=== PATIENT | female | born 1930 | race Caucasian/White ===

== ENCOUNTER 2017-02-12 13:07 | Observation (INO) | payer MEDICARE, OTHER ==
[2017-02-12] MEDS ORDERED: NITROGLYCERIN OINT 1 INCH/GM PACKET TOPICAL STA (14:26)
[2017-02-12] MEDS ORDERED: SODIUM CHLORIDE 0.9% 1,000 ML IV STA (14:26)
[2017-02-12] MEDS ORDERED: ONDANSETRON 4 MG/2 ML VIAL IVP STA (14:26)
--- NOTE | 2017-02-12 14:38 | ED ---
Chest Pain HPI - General Chief Complaint: Chest Pain Stated Complaint: Burning sensation in chest Time Seen by Provider: 02/12/17 13:58 Source: patient Mode of arrival: wheelchair Limitations: no limitations - History of Present Illness Initial Comments: Planing about chest pain, she had a couple episodes of chest pain each lasted for 5 minutes on the left side of the chest and today she had some burning on the right side of the chest and it has resolved prior to her arrival to the ER [facility] shortness of breath and deep breaths do not make the chest pain worse she has no symptoms at all she never smoked in her life and she denies any alcohol family history significant for cancer the mother decided the dad had a TB the both parents when she was very young does not know exactly too much about their health history denies any fever no chills no nausea no vomiting no signs of any TIA or CVA is also complaining about the lump on the right thigh - Related Data Home Medications Medication Instructions Recorded Confirmed Cholecalciferol [Vitamin D3] 1,000 unit PO DAILY 02/12/17 02/12/17 Levothyroxine Sodium [Synthroid] 75 mcg PO DAILY 02/12/17 02/12/17 Multivitamins, Thera [Multivitamin 1 tab PO DAILY 02/12/17 02/12/17 (formulary)] Olmesartan/Hydrochlorothiazide 1 tab PO DAILY 02/12/17 02/12/17 [Olmesartan-Hctz 40-12.5 mg Tab] Allergies Allergy/AdvReac Type Severity Reaction Status Date / Time No Known Allergies Allergy Verified 02/12/17 14:12 Review of Systems ROS Statement: Those systems with pertinent positive or pertinent negative responses have been documented in the HPI. ROS Other: All systems not noted in ROS Statement are negative. EKG Findings - EKG Comments: EKG Findings:: Him EKG shows normal sinus rhythm ventricular rate is 84 VA interval is 206 QRS duration is 138 QT/QTc is 424/501 left ventricle hypertrophy with QRS widening and repolarization abnormality, this EKG was compared with EKG done back in 10/09/2012 was to the EKG looks quite unchanged when compared to the old EKG from 10/09/2012 Past Medical History Past Medical History: Hypertension, Thyroid Disorder History of Any Multi-Drug Resistant Organisms: None Reported Past Surgical History: No Surgical Hx Reported Past Psychological History: No Psychological Hx Reported Smoking Status: Never smoker Past Alcohol Use History: None Reported Past Drug Use History: None Reported General Exam - General Exam Comments Initial Comments: General: The patient is awake and alert, in no distress, and does not appear acutely ill. Skin: Skin is warm and dry and no rashes or lesions are noted. Eye: Pupils are equal, round and reactive to light, extra-ocular movements are intact; there is normal conjunctiva bilaterally. Ears, nose, mouth and throat: There are moist mucous membranes and no oral lesions. Neck: The neck is supple, there is no tenderness or JVD. Cardiovascular: There is a regular rate and rhythm. No murmur, rub or gallop is appreciated. Respiratory: To auscultation bilateral, no wheezing no rhonchi no distress respiratory mayorga noticed Gastrointestinal: Soft, non-distended, non-tender abdomen without masses or organomegaly noted. There is no rebound or guarding present. Bowel sounds are unremarkable. Back: There is no tenderness to palpation in the midline. There is no obvious deformity. Musculoskeletal: Normal ROM, no tenderness, There is no pedal edema. There is no calf tenderness or swelling. No cords were appreciated. Notice a small lump on the right medial lateral thigh Neurological: CN II-XII intact, Cranial nerves III through XII are intact. There are no obvious motor or sensory deficits. Coordination appears grossly intact. Speech is normal. Psychiatric: Cooperative, appropriate mood & affect, normal judgment. Limitations: no limitations Course Vital Signs 02/12/17 02/12/17 13:29 15:12 Temperature 98 F Pulse Rate 87 71 Respiratory 20 20 Rate Blood Pressure 167/78 151/74 O2 Sat by Pulse 98 95 Oximetry Gen. the reassessed at 1625 her troponin, EKG are DVT studies chest x-ray CBC and compressive metabolic panel are unremarkable Disposition Clinical Impression: Chest pain, Right leg swelling Disposition: ADMITTED IP TO THIS HOSP Condition: Good
[2017-02-12 15:00] LABS: Basophils % (A) 0 %; CH 31.9; Eosinophils # (A) 0.1 k/uL (0-0.7); Eosinophils % (A) 2 %; HCT 44.9 % (34.0-46.0); HDW 2.38; Luc # (Auto) 0.14; Luc % (Auto) 3; Lymphocytes # (A) 1.2 k/uL (1.0-4.8); Lymphocytes % (A) 22 %; MCH 31.4 pg (25.0-35.0); MCHC 33.3 g/dL (31.0-37.0); MCV 94.2 fL (80.0-100.0); Mean Platelet Volume 6.8; Monocytes # (A) 0.4 k/uL (0-1.0); Monocytes % (A) 7 %; Neutrophils # (A) 3.6 k/uL (1.3-7.7); Neutrophils % (A) 67 %; RBC 4.77 m/uL (3.80-5.40); RDW 12.4 % (11.5-15.5); WBC 5.4 k/uL (3.8-10.6); WBC (Perox) 5.36
[2017-02-12 15:12] LABS: INR 1.1 (<1.1); Partial Thromboplastin Time 26.2 sec (22.0-30.0); Prothrombin Time 10.9 sec (9.0-12.0)
[2017-02-12 15:21] LABS: ALT 20 U/L (9-52); AST 30 U/L (14-36); Alkaline Phosphatase 64 U/L (38-126); Anion Gap 13 mmol/L; Blood Urea Nitrogen 20 mg/dL (7-17); Carbon Dioxide 24 mmol/L (22-30); Chloride 104 mmol/L (98-107); Glucose 91 mg/dL (74-99); Magnesium 1.8 mg/dL (1.6-2.3); Non-African American GFR(MDRD) >60 (>60 ml/min/1.73 sqM); Sodium 141 mmol/L (137-145); Total Bilirubin 0.9 mg/dL (0.2-1.3); Total Protein 7.4 g/dL (6.3-8.2)
[2017-02-12 15:28] LABS: Potassium 4.3 mmol/L (3.5-5.1)
--- NOTE | 2017-02-12 15:38 | US ---
EXAMINATION TYPE: US venous doppler duplex LE RT DATE OF EXAM: 02/12/2017 3:32 PM COMPARISON: No previous CLINICAL HISTORY: Pain. Chest pain SIDE PERFORMED: Right VESSELS IMAGED: External Iliac Vein (EIV) Common Femoral Vein Deep Femoral Vein Greater Saphenous Vein * Femoral Vein Popliteal Vein Small Saphenous Vein * Proximal Calf Veins (* superficial vessels) Right Leg: Appears negative for DVT IMPRESSION: Normal exam. No evidence of deep venous thrombosis in the right leg.
[2017-02-12 15:50] LABS: Creatine Kinase 73 U/L (30-135)
--- NOTE | 2017-02-12 15:58 | XR ---
EXAMINATION TYPE: XR chest 2V DATE OF EXAM: 02/12/2017 3:44 PM COMPARISON: 10/09/2012 HISTORY: Chest pain TECHNIQUE: Frontal and lateral views of the chest are obtained. FINDINGS: There is no heart failure nor confluent pneumonic infiltrate. There are chest leads. Costo phrenic angles are clear. Bony thorax appears intact. IMPRESSION: No active cardiopulmonary disease. No change.
[2017-02-12 16:03] LABS: Creatine Kinase MB 1.5 ng/mL (0.0-2.4); Troponin I <0.012 ng/mL (0.000-0.034)
[2017-02-12] MEDS ORDERED: NITROGLYCERIN SL TABS 0.4 MG TAB SUBLINGUAL PRN (16:39)
[2017-02-12] MEDS ORDERED: HEPARIN SODIUM,PORCINE/D5W PMX 25,000 UNIT in DEXTROSE/WATER 1 500ML.BAG IV SCH (16:45)
[2017-02-12 18:01] VITALS: RESP 16
[2017-02-12 21:12] VITALS: BMI 32.8
[2017-02-12 21:25] LABS: Creatine Kinase 62 U/L (30-135)
[2017-02-12 21:36] LABS: Creatine Kinase MB 1.2 ng/mL (0.0-2.4); Troponin I <0.012 ng/mL (0.000-0.034)
[2017-02-13 02:50] LABS: Creatine Kinase 62 U/L (30-135)
[2017-02-13 03:01] LABS: Creatine Kinase MB 1.2 ng/mL (0.0-2.4); Troponin I <0.012 ng/mL (0.000-0.034)
[2017-02-13] MEDS: LEVOTHYROXINE 75 MCG TAB PO SCH ×2 (06:21→08:50)
[2017-02-13 08:31] LABS: Cholesterol 146 mg/dL (<200); HDL Cholesterol 64 mg/dL (40-60); Triglycerides 67 mg/dL (<150)
[2017-02-13] MEDS ORDERED: CHOLECALCIFEROL 1,000 UNIT TAB PO SCH (09:00)
[2017-02-13] MEDS ORDERED: LOSARTAN 50 MG TAB PO SCH (09:00)
[2017-02-13] MEDS ORDERED: HYDROCHLOROTHIAZIDE 12.5 MG CAP PO SCH (09:00)
[2017-02-13] MEDS ORDERED: ASPIRIN 325 MG TAB PO SCH (09:00)
[2017-02-13] MEDS ORDERED: MULTIVITAMINS, THERA 1 EACH TAB PO SCH (12:00)
[2017-02-13] MEDS ORDERED: REGADENOSON 0.4 MG/5 ML SYRINGE IV ONE (12:35)
--- NOTE | 2017-02-13 13:22 | ECHOF ---
Referral Reason:lv function MEASUREMENTS -------- HEIGHT: 162.6 cm WEIGHT: 86.6 kg BP: IVSd: 1.4 cm (0.6 - 1.1) LVIDd: 3.7 cm (3.9 - 5.3) LVPWd: 1.3 cm (0.6 - 1.1) IVSs: 2.2 cm LVIDs: 2.5 cm LVPWs: 2.0 cm Ao Diam: 3.2 cm (2.0 - 3.7) AV Cusp: 0.8 cm (1.5 - 2.6) LA Diam: 3.6 cm (2.7 - 3.8) MV EXCURSION: 11.800 mm (> 18.000) MV EF SLOPE: 30 mm/s (70 - 150) EPSS: 0.2 cm MV E Lito: 1.02 m/s MV DecT: 123 ms MV A Lito: 0.68 m/s MV E/A Ratio: 1.49 AV maxP.90 mmHg AV meanP.22 mmHg AR PHT: 671 ms RAP: 5.00 mmHg RVSP: 37.00 mmHg FINDINGS -------- Sinus rhythm. This was a technically adequate study. The left ventricular size is normal. There is moderate concentric left ventricular hypertrophy. Overall left ventricular systolic function is normal with, an EF between 55 - 60 %. The right ventricle is normal in size and function. The left atrium is normal in size. The right atrium is normal in size. Aortic valve is trileaflet and is moderately thickened. There is mild aortic regurgitation. There is severe aortic stenosis present. Peak/mean gradient across the Aortic Valve is 69.90mmHg / 40.22mmHg. Mild mitral annular calcification present. Mild mitral regurgitation is present. Mild tricuspid regurgitation present. There is mild pulmonary hypertension. The right ventricular systolic pressure, as measured by Doppler, is 37.00mmHg. There is no pulmonic regurgitation present. The aortic root size is normal. There is no pericardial effusion. CONCLUSIONS -------- 1. Sinus rhythm. 2. Mild mitral annular calcification present. 3. Mild mitral regurgitation is present. 4. Mild tricuspid regurgitation present. 5. There is mild pulmonary hypertension. 6. There is no pulmonic regurgitation present. 7. The aortic root size is normal. 8. There is no pericardial effusion. 9. This was a technically adequate study. 10. There is moderate concentric left ventricular hypertrophy. 11. Overall left ventricular systolic function is normal with, an EF between 55 - 60 %. 12. The left atrium is normal in size. 13. Aortic valve is trileaflet and is moderately thickened. 14. There is mild aortic regurgitation. 15. There is severe aortic stenosis present. 16. Peak/mean gradient across the Aortic Valve is 69.90mmHg / 40.22mmHg. MANAGER PROTEIN: Saima Moya RDCS
--- NOTE | 2017-02-13 14:05 | NM ---
EXAMINATION TYPE: NM stress Lexiscan cardiolite DATE OF EXAM: 02/13/2017 1:35 PM COMPARISON: NONE HISTORY: Chest pain. TECHNIQUE: After the intravenous administration of 11.0 mCi Tc 99m Sestamibi - Cardiolite resting SP ECT images acquired 45 minutes post injection. The patient received 0.4mg Lexiscan, 26.9 mCi Tc 99m Sestamibi - Stress images obtained [address] injection FINDINGS: Review of stress and rest SPECT images demonstrates no distinct perfusion abnormality. Gated analysi s shows normal wall motion with an estimated left ventricular ejection fraction of 59 %. IMPRESSION: NO SCINTIGRAPHIC EVIDENCE FOR REVERSIBLE ISCHEMIA.
--- NOTE | 2017-02-13 15:28 | EST ---
DATE OF SERVICE: 02/13/2017 AGE: 86Y SEX: F HT: 64" WT: 191 lbs. Protocol Flavio: Other: Stage: Dur. of Exercise: *Heart Rate Blood Pressure *Rest: 77 Rest: 209/112 * *Max. Achieved: Maximum BP: 85% PMHR: 100% PMHR: *METS: INDICATIONS: Chest pain. MEDICATIONS: See list. Baseline rhythm is sinus mechanism, rate 77 with a left bundle branch block. Baseline blood pressure of 209/112 mm mercury patient received an injection of Lexiscan. Electrocardiograph monitoring revealed no evidence of diagnostic ischemic ST deviation. Cardiolite was injected per protocol. CONCLUSION: 1. Nondiagnostic electrocardiograph stress testing. 2. Nuclear images will be reported separately.
[2017-02-13 16:26] VITALS: BP 130/80; PULSE 66; TEMP 98.8
--- NOTE | 2017-02-13 21:53 | HP ---
DATE OF ADMISSION: 02/12/2017 PRESENTING COMPLAINT: Chest pain. HISTORY OF PRESENTING COMPLAINT: This is a very pleasant 86-year-old patient of Dr. Delatorre whom I saw earlier today. Patient's chronic stable medical conditions include hypertension, hypothyroid. Patient presented after she developed some tingling on the right side of the chest lasting for about a minute. Also had some discomfort afterwards in the left armpit. It did not last too long at all. There was no associated shortness of breath. No dizziness. No perspiration. Now feeling tired. Patient was concerned and therefore got admitted to rule out a cardiac cause. Patient denies any prior cardiac history; is able to get around the house with no symptoms normally. REVIEW OF SYSTEMS: CONSTITUTIONAL: None. HEENT: None. RESPIRATORY: None. CARDIOVASCULAR: None. GASTROINTESTINAL: None. GENITOURINARY: None. MUSCULOSKELETAL: Arthritic pain in the right knee. DERMATOLOGICAL: None. HEMATOLOGICAL: None. LYMPHATIC: None. PSYCHIATRY: None. NEUROLOGICAL: None. PAST MEDICAL HISTORY: 1. Hypertension. 2. Hypothyroid. PAST SURGICAL HISTORY: None. SOCIAL HISTORY: No smoking. No alcohol. Lives by herself. FAMILY HISTORY: Cancer. HOME MEDICATIONS: 1. Olmesartan/hydrochlorothiazide 40/12.5 one tablet p.o. daily. 2. Multivitamin 1 tablet daily. 3. Synthroid 75 mcg daily. 4. Vitamin D3 1000 units p.o. daily. ALLERGIES: NONE. On examination, temperature 98.1, pulse 61, respiration 16, blood pressure 137/76, pulse ox 93% on room air. GENERAL APPEARANCE: Average build. BMI 32.9. Lying in bed, not in distress. EYES: Pupils equal. Conjunctivae normal. HEENT: Oral cavity normal. NECK: JVD not raised. Mass not palpable. RESPIRATORY: Effort normal. LUNGS: Fair air entry. CARDIOVASCULAR: First and second sounds normal. No edema. ABDOMEN: Soft, nontender. Liver and spleen not palpable. LYMPHATIC: No lymph node palpable in neck or axillae. PSYCHIATRY: Alert and oriented x3. Mood and affect normal. NEUROLOGICAL: Pupils equal. Cranial nerves grossly intact. Power and sensation grossly intact. MUSCULOSKELETAL: Evidence of osteoarthritis in both knees. INVESTIGATIONS: White count 5.4, hemoglobin 15, potassium 4.3. BUN and creatinine are normal. Troponin x3 negative. EKG shows LVH. ASSESSMENT: 1. Atypical chest pain, probably musculoskeletal. Given patient's age, need to rule out a cardiac cause. 2. Essential hypertension. 3. Hypothyroidism. 4. Obesity, body mass index of 32.9. 5. Primary osteoarthritis likely in both knees. 6. Abnormal EKG with left ventricular hypertrophy. PLAN: Serial cardiac enzymes were ordered. Patient did have a Doppler study of the right thigh; no DVT. Stress test was ordered by Cardiology. Care was discussed with the patient.
--- NOTE | 2017-02-15 07:28 | DS ---
DATE OF ADMISSION: 02/12/2017 DATE OF DISCHARGE: 02/13/2017 FINAL DIAGNOSES: 1. Atypical chest pain, anterior, likely musculoskeletal. 2. Essential hypertension. 3. Hypothyroidism. 4. Obesity, body mass index of 32.9. 5. Primary osteoarthritis, likely in both knees. 6. Abnormal EKG with left ventricular hypertrophy. HOSPITAL COURSE: This patient presented with chest pain, underwent nuclear stress test that came back to be negative. A 2-D echocardiogram showed preserved LV function; EF of 55% to 60%. Tropes were negative. LDL was 69. Pain was felt to be probably musculoskeletal. CONSULTATION: Cardiology. DISCHARGE MEDICATIONS: 1. Vitamin D3, 1000 units p.o. daily. 2. Synthroid 75 mcg p.o. daily. 3. Multivitamin 1 tablet p.o. daily. 4. Olmesartan hydrochlorothiazide 40/12.5 one tablet daily. 5. Aspirin 81 mg daily. 6. Nitrostat 0.4 sublingual q.5 p.r.n. Follow up with Dr. Delatorre in one week.
--- NOTE | 2017-03-06 16:59 | DS ---
ADDENDUM TO DISCHARGE SUMMARY DATE OF ADMISSION: 02/12/2017 DATE OF DISCHARGE: 02/13/2017 On examination, anterior chest wall has reproducible pain. LUNGS: Clear to auscultation. PSYCH: Alert and oriented x3. Mood and affect normal.
== END 2017-02-13 18:12 | disposition home or self-care (01) ==
LOC: EC 13:07 → 3OBS 16:39
PROVIDERS: ADMIT Hospitalist; ATTEND Hospitalist
DX: R07.89 Other chest pain (principal); I10 Essential (primary) hypertension; R22.41 Localized swelling, mass and lump, right lower limb; E03.9 Hypothyroidism, unspecified; M19.91 Primary osteoarthritis, unspecified site; R94.31 Abnormal electrocardiogram [ECG] [EKG]; Z79.899 Other long term (current) drug therapy
CPT/HCPCS: 99285 ×2; 96360 ×2; 96361 ×3; 36415; 93005; 93017; 93306; 80061; 80053; 82550 ×2; 82553 ×2; 83735; 84484 ×2; 85025; 85610; 85730 ×2; 71020; 93971; 78452; G0378 ×2; A9500; J1644; J2785; 96365; 96366

== ENCOUNTER → 2018-05-08 | Outpatient (CLI) | payer MEDICARE, OTHER ==
--- NOTE | 2018-05-09 12:26 | ECHOF ---
Referral Reason:I35.0 Nonrheumatic aortic (valve) stenosis MEASUREMENTS -------- HEIGHT: 165.1 cm WEIGHT: 82.1 kg BP: IVSd: 1.3 cm (0.6 - 1.1) LVIDd: 4.0 cm (3.9 - 5.3) LVPWd: 1.5 cm (0.6 - 1.1) IVSs: 1.7 cm LVIDs: 2.9 cm LVPWs: 2.3 cm LAESV Index (A-L): 25.61 ml/m Ao Diam: 2.8 cm (2.0 - 3.7) AV Cusp: 0.7 cm (1.5 - 2.6) LA Diam: 3.6 cm (2.7 - 3.8) MV EXCURSION: 16.312 mm (> 18.000) MV EF SLOPE: 38 mm/s (70 - 150) EPSS: 0.3 cm MV E Lito: 0.58 m/s MV DecT: 115 ms MV A Lito: 0.80 m/s MV E/A Ratio: 0.72 AV maxP.36 mmHg AV meanP.10 mmHg RAP: 5.00 mmHg RVSP: 30.99 mmHg FINDINGS -------- Undetermined rhythm. This was a technically good study. The left ventricular size is normal. There is moderate concentric left ventricular hypertrophy. O verall left ventricular systolic function is mildly impaired with, an EF between 45 - 50 %. Septal wall motion is delayed, and consistent with conduction delay/bundle branch block. The right ventricle is normal in size and function. Normal LA size by volume 22+/-6 ml/m2. The right atrium is normal in size. Aortic valve is trileaflet and is moderately thickened. There is [id number] aortic stenosis present. Peak/mean gradient across the Aortic Valve is 53.36mmHg / 32.10mmHg. The mitral valve leaflets are mildly thickened. Mild mitral annular calcification present. Mild m itral regurgitation is present. Mild tricuspid regurgitation present. The right ventricular systolic pressure, as measured by Doppl er, is 30.99mmHg. Pulmonic valve appears structurally normal. The aortic root size is normal. Normal inferior vena cava with normal inspiratory collapse consistent with estimated right atrial pre ssure of 5 mmHg. The pericardium is normal. CONCLUSIONS -------- 1. Undetermined rhythm. 2. This was a technically good study. 3. The left ventricular size is normal. 4. There is moderate concentric left ventricular hypertrophy. 5. Overall left ventricular systolic function is mildly impaired with, an EF between 45 - 50 %. 6. Septal wall motion is delayed, and consistent with conduction delay/bundle branch block. 7. The right ventricle is normal in size and function. 8. Normal LA size by volume 22+/-6 ml/m2. 9. The right atrium is normal in size. 10. Aortic valve is trileaflet and is moderately thickened. 11. There is [id number] aortic stenosis present. 12. Peak/mean gradient across the Aortic Valve is 53.36mmHg / 32.10mmHg. 13. The mitral valve leaflets are mildly thickened. 14. Mild mitral annular calcification present. 15. Mild mitral regurgitation is present. 16. Mild tricuspid regurgitation present. 17. The right ventricular systolic pressure, as measured by Doppler, is 30.99mmHg. 18. Pulmonic valve appears structurally normal. 19. The aortic root size is normal. 20. Normal inferior vena cava with normal inspiratory collapse consistent with estimated right atrial pressure of 5 mmHg. 21. The pericardium is normal. SENIOR MECHANICAL ENGINEER: Saima Moya RDCS
== END | disposition home or self-care (01) ==
LOC: RADECHMAIN 12:59
PROVIDERS: ATTEND Internal Medicine
DX: I08.1 Rheumatic disorders of both mitral and tricuspid valves (principal)
CPT/HCPCS: 93306